=== PATIENT | female | born 1995 | race Caucasian/White ===

== ENCOUNTER 2016-09-02 07:25 | Emergency (ER) | payer OTHER ==
[~2016-09-02] VITALS: Ht 160 cm; Wt 40.8 kg
[~2016-09-02 07:25] MED LIST: AMOXICILLIN500 MG PO; BLM PO; PREDNICOT20 MG PO
[2016-09-02 07:33] VITALS: BP 114/72
--- NOTE | 2016-09-02 08:00 | ED THROAT/DENTAL COMPLAINT ---
History of Present Illness General Chief Complaint: Sore Throat, Dental Pain Stated Complaint: SORE THROAT X 1 WEEK Source: patient, family Exam Limitations: no limitations Vital Signs & Intake/Output Vital Signs & Intake/Output Vital Signs Date Time Temp Pulse Resp B/P Pulse O2 O2 Flow FiO2 Ox Delivery Rate 09/02 0733 99.5 110 18 114/72 100 Room Air Allergies Coded Allergies: NO KNOWN ALLERGIES (03/22/14) Reconcile Medications Amoxicillin 875 MG TABLET 1 TAB PO BID strep throat Ibuprofen 600 MG TABLET 1 TAB PO TID PRN pain with food Prednisone 10 MG TABLET 4 TAB PO DAILY strep throat Triage Note: COMPLAINS OF SORE THROAT AND HEAD CONGESTION FOR 1 WEEK, INTERMITTANT FEVERS Triage Nurses Notes Reviewed? yes : No Patient currently breastfeeds: No HPI: Patient is a 21-year-old female presents complaining of sore throat, fevers, fatigue for the past 5-7 days. Patient has been taking Tylenol with mild improvement. Fever up to 100.1F. Mild associated cough. Positive associated congestion. Patient is tolerating fluids and her saliva. Denies dyspnea. Past History Travel History Traveled to [place] past 21 day No Medical History Any Pertinent Medical History? none Neurological: NONE EENT: NONE Cardiovascular: NONE Respiratory: NONE Gastrointestinal: NONE Hepatic: NONE Renal: NONE Musculoskeletal: NONE Psychiatric: NONE Endocrine: NONE Blood Disorders: NONE Cancer(s): NONE Surgical History Surgical History: non-contributory Psychosocial History What is your primary language Barbadian Tobacco Use: Never used ETOH Use: denies use Illicit Drug Use: denies illicit drug use Family History Hx Contributory? No Review of Systems Review of Systems Constitutional: Reports: chills, fever, malaise. EENTM: Reports: see HPI, nasal congestion, throat pain. Respiratory: Reports: cough. Denies: short of breath. Cardiovascular: Denies: chest pain. GI: Denies: abdominal pain. Musculoskeletal: Reports: no symptoms. Skin: Reports: no symptoms. Hematologic/Endocrine: Reports: no symptoms. Immunologic/Allergic: Reports: lymphadenopathy. Physical Exam Physical Exam General Appearance: well developed/nourished, alert, awake Head: atraumatic, normal appearance Eyes: Bilateral: normal appearance, PERRL, EOMI. Ears: Bilateral: canal normal, Tympanic normal. Nose: normal inspection Mouth/Throat: mild pharyngeal erythema. No exudates Neck: normal inspection, supple, full range of motion, ANTERIOR CERVICAL LYMPHADENOPATHY Cardiovascular/Respiratory: normal breath sounds, normal peripheral pulses, regular rate/rhythm, no respiratory distress Back: normal inspection, normal range of motion Neurologic/Psych: no motor/sensory deficits, awake, alert, oriented x 3, normal gait, normal mood/affect Skin: intact, normal color, warm/dry Core Measures ACS in differential dx? No Severe Sepsis Present: No Septic Shock Present: No Progress Differential Diagnosis: epiglottitis, Ludwigs angina, meningitis, justus-tonsillar abscess, strep pharyngitis Plan of Care: Orders Procedure Date/time Status THROAT CULTURE W/QUICK STREP 09/02 726 Complete Patient nontoxic appearing, tolerating oral intake. Appears stable for discharge and outpatient treatment. (KAREN ROMERO,DIANA) Departure Departure Time of Disposition: 810 Disposition: HOME OR SELF CARE Condition: Stable Clinical Impression Primary Impression: Strep throat Referrals: PATIENT HAS NO PRIMARY CARE DR (PCP/Family) Additional Instructions: Drink plenty fluids and rest. Return to the emergency department if difficulty breathing, swallowing is becoming more difficult, or worsening of symptoms. Departure Forms: Customer Survey General Discharge Information Prescriptions: Current Visit Scripts Amoxicillin 1 TAB PO BID #20 TAB Prednisone 4 TAB PO DAILY #16 TAB Ibuprofen 1 TAB PO TID PRN pain #30 TAB with food
[2016-09-02] MEDS ORDERED: PREDNISONE10 M2 PO (08:13)
[2016-09-02] MEDS ORDERED: IBUPROFEN600 M1 PO (08:13)
[2016-09-02] MEDS ORDERED: AMOXICILLIN875 M1 PO (08:13)
== END 2016-09-02 08:24 ==
LOC: ERH 07:25
DX: J02.0 Streptococcal pharyngitis (principal)